=== PATIENT | female | born 1990 | race Caucasian/White ===

== ENCOUNTER 2021-01-09 01:10 | Inpatient (IN) | payer MEDICARE, MEDICAID ==
[~2021-01-09 01:10] MED LIST: RISP2TAB45 PO
[2021-01-09] MEDS ORDERED: ZOLPIDEM TARTRATE 10 MG TABLET PO PRN (01:45)
[2021-01-09] MEDS ORDERED: DiphenhydrAMINE HCL 50 MG/ML VIAL IM ONE (02:00)
[2021-01-09] MEDS ORDERED: HALOPERIDOL LACTATE 5 MG/ML VIAL IM ONE (02:00)
[2021-01-09] MEDS ORDERED: LORazepam 2 MG/ML VIAL IM ONE (02:00)
[2021-01-09 02:16] VITALS: BP 99/60
[2021-01-09 08:07] VITALS: BP 106/66
[2021-01-09 08:36] LABS: APPEARANCE,URINE TURBID (CLEAR); BILIRUBIN,URINE NEGATIVE (NEGATIVE); GLUCOSE, URINE (UA) NEGATIVE (NEGATIVE); KETONES,URINE NEGATIVE (NEGATIVE); LEUKOCYTE ESTERASE ,URINE NEGATIVE (NEGATIVE); NITRATE,URINE NEGATIVE (NEGATIVE); OCCULT BLOOD,URINE NEGATIVE (NEGATIVE); PH,URINE 8.5 (5.0-8.0); PROTEIN,URINE NEGATIVE (NEGATIVE); UROBILINOGEN,URINE 0.2 mg/dL (<=1.0)
[2021-01-09 08:43] LABS: AMPHET/METH SCREEN,URINE NEGATIVE (NEGATIVE); BARBITURATE SCREEN, URINE NEGATIVE (NEGATIVE); BENZODIAZEPINES SCREEN,URINE NEGATIVE (NEGATIVE); CANNABINOID SCREEN,URINE NEGATIVE (NEGATIVE); COCAINE SCREEN,URINE NEGATIVE (NEGATIVE); METHADONE SCREEN, URINE NEGATIVE (NEGATIVE); OPIATE SCREEN,URINE NEGATIVE (NEGATIVE)
[2021-01-09] MEDS: LORazepam 2 MG TABLET PO PRN ×2 (08:43→12:39)
[2021-01-09 09:53] LABS: PHENCYCLIDINE SCREEN,URINE NEGATIVE (NEGATIVE)
[2021-01-09] MEDS ORDERED: CloNIDine HCL 0.1 MG TABLET PO PRN (10:00)
[2021-01-09] MEDS ORDERED: IBUPROFEN 600 MG TABLET PO PRN (10:00)
[2021-01-09] MEDS ORDERED: ACETAMINOPHEN 325 MG TABLET PO PRN (10:00)
[2021-01-09] MEDS ORDERED: OMEPRAZOLE 20 MG CAPSULE PO PRN (10:00)
[2021-01-09] MEDS ORDERED: MAG HYDROX/AL HYDROX/SIMETH ES 30 ML SUSPENSION UDCUP PO PRN (10:00)
[2021-01-09] MEDS ORDERED: MAGNESIUM HYDROXIDE SUSPENSION 30 ML UDCUP PO PRN (10:00)
[2021-01-09] MEDS ORDERED: ONDANSETRON HCL 4 MG TABLET PO PRN (10:00)
[2021-01-09] MEDS ORDERED: PETROLATUM,WHITE 28 GM JELLY TP PRN (10:00)
[2021-01-09] MEDS ORDERED: ALBUTEROL SULFATE HFA 90 MCG/PUFF 8 GM INHALER IH PRN (10:00)
[2021-01-09] MEDS ORDERED: DOCUSATE SODIUM 100 MG CAPSULE PO PRN (10:00)
[2021-01-09] MEDS ORDERED: LOPERAMIDE HCL 2 MG CAPSULE PO PRN (10:00)
[2021-01-09] MEDS ORDERED: BACITRACIN 28 GM OINTMENT TP PRN (10:00)
[2021-01-09] MEDS ORDERED: BENZOCAINE/MENTHOL LOZENGE PO PRN (10:00)
[2021-01-09] MEDS: RisperiDONE 2 MG TABLET PO SCH (10:47)
[2021-01-09] MEDS: NICOTINE 21 MG/24 HOUR PATCH TD PRN (12:59)
[2021-01-09 16:30] VITALS: BP 131/65
[2021-01-10 01:09] VITALS: BP 111/72
[2021-01-10 08:20] VITALS: BP 113/67
[2021-01-10] MEDS: NICOTINE 21 MG/24 HOUR PATCH TD PRN (09:00)
[2021-01-10] MEDS: LORazepam 2 MG TABLET PO PRN (09:02)
[2021-01-10] MEDS: RisperiDONE 2 MG TABLET PO SCH (09:02)
[2021-01-10] MEDS ORDERED: HALOPERIDOL LACTATE 5 MG/ML VIAL IM ONE (13:15)
[2021-01-10] MEDS ORDERED: DiphenhydrAMINE HCL 50 MG/ML VIAL IM ONE (13:15)
[2021-01-10] MEDS ORDERED: LORazepam 2 MG/ML VIAL IM ONE (13:15)
[2021-01-10 16:27] VITALS: BP 100/60
[2021-01-11 05:52] VITALS: BP 124/81
[2021-01-11 08:08] VITALS: BP 112/72
[2021-01-11] MEDS: RisperiDONE 2 MG TABLET PO SCH (08:14)
[2021-01-11] MEDS: LORazepam 2 MG TABLET PO PRN ×2 (08:18→14:12)
[2021-01-11] MEDS: NICOTINE 21 MG/24 HOUR PATCH TD PRN (09:20)
[2021-01-11 16:14] VITALS: BP 114/69
== END 2021-01-11 16:25 | disposition home or self-care (01) | DRG 885 ==
LOC: B2X 01:10
PROVIDERS: ADMIT Psychiatry & Neurology Psychiatry; ATTEND Psychiatry & Neurology Psychiatry
DX: F31.9 Bipolar disorder, unspecified (principal); F15.10 Other stimulant abuse, uncomplicated; K59.00 Constipation, unspecified; F41.9 Anxiety disorder, unspecified; G47.00 Insomnia, unspecified; Z88.5 Allergy status to narcotic agent; Z88.8 Allergy status to other drugs, medicaments and biological substances
CPT/HCPCS: 80307; 87081; J1200; J1630; J2060